=== PATIENT | female | born 1980 | race African-American/Black ===

== ENCOUNTER 2018-01-20 14:17 | Outpatient (CLI) | payer OTHER | END 2018-01-20 14:18 | disposition home or self-care (01) | LOC: DTY/OP 14:17 | PROVIDERS: ATTEND Specialist | DX: K21.9 Gastro-esophageal reflux disease without esophagitis (principal); E66.01 Morbid (severe) obesity due to excess calories; Z68.43 Body mass index [BMI] 50.0-59.9, adult | CPT/HCPCS: 97802 ==